=== PATIENT | male | born 1965 | race Caucasian/White ===

== ENCOUNTER → 2020-01-10 | Outpatient (CLI) | payer BC | END | disposition home or self-care (01) | LOC: COVID19 10:44 | DX: Z03.818 Encounter for observation for suspected exposure to other biological agents ruled out (principal) ==

== ENCOUNTER 2025-02-09 09:18 | Inpatient (IN) | payer OTHER ==
[2025-02-09] VITALS (7 sets, daily range): BP systolic 122–141; BP diastolic 78–109
[~2025-02-09] VITALS: Ht 185.4 cm; Wt 104.0 kg
[2025-02-09] MEDS ORDERED: ALPRAZOLAM0.25 M2 PO (09:29)
[2025-02-09] MEDS ORDERED: Ondansetron Hydrochloride 4 MG/2 ML VIAL IV ONE (09:45)
[2025-02-09] MEDS ORDERED: SODIUM CHLORIDE 0.9% 1,000 ML IV ONE ×3 (09:45→15:30)
[2025-02-09] MEDS ORDERED: Ondansetron4 MG PO (10:07)
[2025-02-09] MEDS ORDERED: FAMCICLOVIR250 MG PO (10:07)
[2025-02-09 10:29] LABS: BUN 21.0 mg/dl (9-23); SGPT/ALT 33.0 U/L (5-49)
[2025-02-09 11:46] LABS: MEAN CELL VOLUME 90.4 fl (80.0-94.0); MEAN CORPUSCULAR HGB 32.7 pg (27.0-31.0); MEAN PLATELET VOLUME 11.4 fl (9.6-12.3); NUCLEATED RED BLOOD CELL 0.0 % (0.0-0.0); NUCLEATED RED BLOOD CELL 0.0 10*3/uL (0.0-0.0); PLATELET COUNT AUTOMATED 242 10*3/uL (130-400); RED CELL DISTRI WIDTH 11.7 % (0-14.5)
[2025-02-09 11:47] LABS: BASO # 0.0 10*3/uL (0.0-0.1); BASO % 0.3 % (0.0-1.0); EOS # 0.0 10*3/uL (0.0-0.4); EOS % 0.4 % (1.0-4.0); MONO # 1.3 10*3/uL (0.1-1.0); MONO % 13.8 % (3.0-9.0); NEUT # 6.6 10*3/uL (2.3-7.9); NEUT % 71.2 % (47.0-73.0)
[2025-02-09] MEDS ORDERED: Ondansetron Hydrochloride 4 MG/2 ML VIAL IV PRN (12:10)
[2025-02-09] MEDS ORDERED: SODIUM CHLORIDE 0.9% 1,000 ML IV SCH (14:45)
[2025-02-09] MEDS ORDERED: Lactated Ringer's Solution 1,000 ML IV SCH (14:50)
[2025-02-09 15:06] LABS: BUN 23.0 mg/dl (9-23)
[2025-02-09] MEDS ORDERED: Midazolam Hydrochloride 2 MG/2 ML VIAL IV ONE (17:10)
[2025-02-10] VITALS (10 sets, daily range): BP systolic 101–155; BP diastolic 61–92
[2025-02-10 00:54] LABS: BUN 23 mg/dl (9-23)
[2025-02-10] MEDS ORDERED: Midazolam Hydrochloride 2 MG/2 ML VIAL IV ONE ×2 (05:10→13:49)
[2025-02-10 06:43] LABS: BUN 23 mg/dl (9-23); FREE T4 1.69 ng/dl (0.89-1.76); SGPT/ALT 28 U/L (5-49)
[2025-02-10 06:50] LABS: BASO # 0.0 10*3/uL (0.0-0.1); BASO % 0.4 % (0.0-1.0); EOS # 0.1 10*3/uL (0.0-0.4); EOS % 0.7 % (1.0-4.0); MEAN CELL VOLUME 89.9 fl (80.0-94.0); MEAN CORPUSCULAR HGB 32.6 pg (27.0-31.0); MEAN PLATELET VOLUME 12.4 fl (9.6-12.3); MONO # 1.1 10*3/uL (0.1-1.0); MONO % 15.8 % (3.0-9.0); NEUT # 4.6 10*3/uL (2.3-7.9); NEUT % 64.9 % (47.0-73.0); NUCLEATED RED BLOOD CELL 0.0 % (0.0-0.0); NUCLEATED RED BLOOD CELL 0.0 10*3/uL (0.0-0.0); PLATELET COUNT AUTOMATED 250 10*3/uL (130-400); RED CELL DISTRI WIDTH 11.8 % (0-14.5)
[2025-02-10 06:57] LABS: VITAMIN D, 25-HYDROXY 46.1 ng/mL (30-100)
[2025-02-10] MEDS ORDERED: Lactated Ringer's Solution 1,000 ML IV ONE ×3 (07:17→08:43)
[2025-02-10] MEDS ORDERED: POTASSIUM CHLORIDE IN WATER 100 ML IV SCH (08:00)
[2025-02-10] MEDS ORDERED: Naloxone Hydrochloride 0.4 MG/ML VIAL IV PRN ×2 (09:25→09:40)
[2025-02-10] MEDS ORDERED: MORPHINE Sulfate 30 MG/30 ML SYR IV SCH (09:25)
[2025-02-10] MEDS ORDERED: POTASSIUM CHLORIDE 10 MEQ in DEXTROSE 5% IN LACTATED RINGER 1,000 ML IV SCH ×2 (10:00→22:00)
[2025-02-10] MEDS ORDERED: ACETAMINOPHEN 1,000 MG/100 ML SOL IV SCH (12:00)
[2025-02-10] MEDS ORDERED: ACETAMINOPHEN 100 ML IV SCH (12:00)
[2025-02-10] MEDS ORDERED: PROPOFOL 200 MG/20 ML VIAL IV ONE (13:49)
[2025-02-10] MEDS ORDERED: ROCURONIUM BROMIDE 50 MG/5 ML SYRINGE IV ONE (13:49)
[2025-02-10] MEDS ORDERED: Ondansetron Hydrochloride 4 MG/2 ML VIAL IV ONE (13:49)
[2025-02-10] MEDS ORDERED: SEVOFLURANE 250 ML BOT INH ONE (13:49)
[2025-02-10] MEDS ORDERED: Dexamethasone Sodium Phospha 4 MG/ML VIAL IV ONE (13:49)
[2025-02-10] MEDS ORDERED: Lidocaine Hydrochloride 2% 5 ML SDV IM ONE (13:49)
[2025-02-11] VITALS: BP 129/80
[2025-02-11] MEDS ORDERED: DEXTROSE 5% IV ONE (05:34)
[2025-02-11] MEDS ORDERED: [UNRECOGNIZED DRUG - OTHER] IV ONE (05:34)
[2025-02-11 06:37] LABS: BASO # 0.0 10*3/uL (0.0-0.1); BASO % 0.2 % (0.0-1.0); EOS # 0.0 10*3/uL (0.0-0.4); EOS % 0.2 % (1.0-4.0); MEAN CORPUSCULAR HGB 33.2 pg (27.0-31.0); MEAN PLATELET VOLUME 12.0 fl (9.6-12.3); MONO # 1.0 10*3/uL (0.1-1.0); MONO % 16.9 % (3.0-9.0); NEUT # 4.1 10*3/uL (2.3-7.9); NEUT % 72.7 % (47.0-73.0); NUCLEATED RED BLOOD CELL 0.0 % (0.0-0.0); NUCLEATED RED BLOOD CELL 0.0 10*3/uL (0.0-0.0); PLATELET COUNT AUTOMATED 201 10*3/uL (130-400); RED CELL DISTRI WIDTH 11.6 % (0-14.5)
[2025-02-11 06:38] LABS: BUN 16 mg/dl (9-23)
[2025-02-11 06:52] LABS: MEAN CELL VOLUME 94.9 fl (80.0-94.0)
[2025-02-11 08:00] VITALS: BP 127/73
[2025-02-11 12:00] VITALS: BP 129/84
[2025-02-11] MEDS ORDERED: POTASSIUM CL D5/.45NS SOL. 1,000 ML IV ONE (14:00)
[2025-02-11 16:00] VITALS: BP 128/68
[2025-02-11 20:00] VITALS: BP 132/77
[2025-02-12] VITALS: BP 106/45
[2025-02-12] MEDS ORDERED: BISACODYL 10 MG SUPP R PRN (05:55)
[2025-02-12] MEDS ORDERED: BISACODYL 5 MG TAB PO PRN (05:55)
[2025-02-12 06:38] LABS: BASO # 0.0 10*3/uL (0.0-0.1); BASO % 0.5 % (0.0-1.0); EOS # 0.1 10*3/uL (0.0-0.4); EOS % 1.4 % (1.0-4.0); MEAN CELL VOLUME 95.7 fl (80.0-94.0); MEAN CORPUSCULAR HGB 32.3 pg (27.0-31.0); MEAN PLATELET VOLUME 11.7 fl (9.6-12.3); MONO # 1.0 10*3/uL (0.1-1.0); MONO % 14.9 % (3.0-9.0); NEUT # 4.0 10*3/uL (2.3-7.9); NEUT % 62.1 % (47.0-73.0); NUCLEATED RED BLOOD CELL 0.0 % (0.0-0.0); NUCLEATED RED BLOOD CELL 0.0 10*3/uL (0.0-0.0); PLATELET COUNT AUTOMATED 207 10*3/uL (130-400); RED CELL DISTRI WIDTH 11.9 % (0-14.5)
[2025-02-12 07:21] LABS: BUN 11 mg/dl (9-23)
[2025-02-12 08:00] VITALS: BP 125/68
[2025-02-12] MEDS ORDERED: Acetaminophen/Hydrocodone 5 MG/325 MG TABLET PO PRN (11:20)
[2025-02-12 12:00] VITALS: BP 133/88
[2025-02-12 16:00] VITALS: BP 124/65
[2025-02-12] MEDS ORDERED: DOCUSATE SODIUM 100 MG CAP PO SCH (18:00)
[2025-02-12 20:00] VITALS: BP 125/61
[2025-02-13 06:18] LABS: BASO # 0.1 10*3/uL (0.0-0.1); BASO % 0.9 % (0.0-1.0); EOS # 0.1 10*3/uL (0.0-0.4); EOS % 1.0 % (1.0-4.0); MEAN CELL VOLUME 95.2 fl (80.0-94.0); MEAN CORPUSCULAR HGB 32.6 pg (27.0-31.0); MEAN PLATELET VOLUME 11.6 fl (9.6-12.3); MONO # 1.0 10*3/uL (0.1-1.0); MONO % 13.5 % (3.0-9.0); NEUT # 5.0 10*3/uL (2.3-7.9); NEUT % 65.1 % (47.0-73.0); NUCLEATED RED BLOOD CELL 0.0 % (0.0-0.0); NUCLEATED RED BLOOD CELL 0.0 10*3/uL (0.0-0.0); PLATELET COUNT AUTOMATED 259 10*3/uL (130-400); RED CELL DISTRI WIDTH 11.7 % (0-14.5)
[2025-02-13 06:56] LABS: BUN 13 mg/dl (9-23); SGPT/ALT 72 U/L (5-49)
[2025-02-13 08:00] VITALS: BP 130/87
[2025-02-13 12:00] VITALS: BP 131/85
[2025-02-13] MEDS ORDERED: HYDROCODONE-AC1 EAC1 PO (14:13)
[2025-02-13] MEDS ORDERED: DULCOLAX STOOL100 M1 PO (14:13)
== END 2025-02-13 14:49 | disposition home or self-care (01) | DRG 356 ==
LOC: ED 09:18 → 4E 11:19 → EDHOLD 11:19 → 4E 16:29
PROVIDERS: Emergency Medicine; Student in an Organized Health Care Education/Training Program; ADMIT Internal Medicine; ATTEND Internal Medicine
PROC: 0D9670Z Drainage of Stomach with Drainage Device, Via Natural or Artificial Opening (ICD-10-PCS; principal; 2025-02-09)
PROC: 0DJD0ZZ Inspection of Lower Intestinal Tract, Open Approach (ICD-10-PCS; 2025-02-10)
DX: K56.609 Unspecified intestinal obstruction, unspecified as to partial versus complete obstruction (principal); N17.0 Acute kidney failure with tubular necrosis; E87.1 Hypo-osmolality and hyponatremia; E87.6 Hypokalemia; E86.0 Dehydration; E83.52 Hypercalcemia; F17.220 Nicotine dependence, chewing tobacco, uncomplicated; R73.9 Hyperglycemia, unspecified; D64.9 Anemia, unspecified; Z79.899 Other long term (current) drug therapy